=== PATIENT | female | born 1950 | race Caucasian/White ===

== ENCOUNTER 2016-10-21 02:58 | Emergency (ER) | payer OTHER, MEDICARE ==
[~2016-10-21] VITALS: Ht 147.3 cm; Wt 72.6 kg
[~2016-10-21 02:58] MED LIST: A/B OTIC15 ML; AMBIEN5 MG PO; ASPIR 8181 MG PO; BACLOFEN10 MG PO; CEL20 PO; COZ50 PO; DIT5 PO; ESCITALOPRAM20 M1 PO; FENOFIBRATE MI134 MG PO; FLUTICASON0.05 MG/Ac INH; GLATOPA INJ; GLU850 PO; HYDROCHLOROTHIA25 MG PO; HYDROCODONE/ACE1 TA2 PO; LAC PO; LEVAQUIN750 MG PO; PATANOL5 ML PO; PREDNISONE10 MG PO; PREDNISONE20 MG PO; TRAMADOL50 M1 PO; VITAMIN D5000 I3 PO; ZOC10 PO; ZOLPIDEM TARTRAT5 MG PO; [UNRECOGNIZED DRUG - CODE] TOP
[2016-10-21 16:51] LABS: BASOPHIL % 0.3 % (0-2); PLATELET COUNT 291 x10^3mcL (130-400); RED CELL DISTRIBUTION WIDTH 12.9 % (11.5-14.5)
[2016-10-21 16:58] LABS: CALCIUM 9.5 mg/dL (8.5-10.1); CARBON DIOXIDE 28.3 mmol/L (21-32); CHLORIDE SERUM 105 mmol/L (98-107); CREATININE SERUM 0.8 mg/dL (0.6-1.0); GFR1 > 60 mL/min; GLUCOSE SERUM 96 mg/dL (74-106); POTASSIUM SERUM 3.8 mmol/L (3.5-5.1); SODIUM SERUM 144 mmol/L (136-145)
[2016-10-21 17:03] LABS: ALBUMIN 4.3 g/dL (3.4-5.0); ALKALINE PHOSPHATASE 50 U/L (46-116); ALT/SGPT 23 U/L (14-59); AST/SGOT 16 U/L (15-37); BILIRUBIN TOTAL 0.4 mg/dL (0.20-1.00); CHOLESTEROL 146 mg/dL (<200); HDL CHOLESTEROL 52 mg/dL (40-60); TOTAL PROTEIN, SERUM 7.4 g/dL (6.4-8.2)
[2016-10-21 19:30] VITALS: BP 147/75
== END 2016-10-21 19:30 | disposition home or self-care (01) ==
LOC: ED 02:58
PROVIDERS: Emergency Medicine
DX: S00.83XA Contusion of other part of head, initial encounter (principal); S00.81XA Abrasion of other part of head, initial encounter; I10 Essential (primary) hypertension; E11.9 Type 2 diabetes mellitus without complications; Z88.0 Allergy status to penicillin; W17.89XA Other fall from one level to another, initial encounter; Y93.89 Activity, other specified; Y99.8 Other external cause status; Y92.89 Other specified places as the place of occurrence of the external cause
CPT/HCPCS: 83880

== ENCOUNTER 2017-02-08 11:31 | Emergency (ER) | payer OTHER, MEDICARE ==
[~2017-02-08] VITALS: Ht 149.9 cm; Wt 72.6 kg
[2017-02-08 15:00] VITALS: BP 120/71
== END 2017-02-08 15:00 | disposition home or self-care (01) ==
LOC: ED 11:31
DX: S93.115A Dislocation of interphalangeal joint of left lesser toe(s), initial encounter (principal); I10 Essential (primary) hypertension; E11.9 Type 2 diabetes mellitus without complications; Z88.0 Allergy status to penicillin; W18.39XA Other fall on same level, initial encounter; Y93.89 Activity, other specified; Y99.8 Other external cause status; Y92.89 Other specified places as the place of occurrence of the external cause
CPT/HCPCS: J2001; Q0092

== ENCOUNTER 2017-05-02 08:38 | Inpatient (IN) | payer OTHER, MEDICARE ==
[~2017-05-02] VITALS: Ht 147.3 cm; Wt 76.7 kg
--- NOTE | 2017-05-02 09:01 | NUR ---
PT BIBA FROM HOME WITH C/O GENERALIZED WEAKNESS AND FALL, PER MEDICS THEY WERE CALLED OUT INITIALLY FOR AN "ASSIST" THEY REPORT PT WAS UNABLE TO GET BACK TO HER ROOM, MEDICS DENY FALL BUT PT REPORTS FALLING, STATES "I FALL ALOT", HX OF MS, PT IS AWAKE AND ALERT, WHEN ASKING PT QUESTIONS, PT STATES TO DR. PRICE "YOU ARE ASKING A LOT OF QUESTIONS", PT ALSO STATES "I'M GOING TO TAKE A VOTE WITH EVERYONE HERE WHO THINKS I SHOULD ANSWER THESE QUESTIONS", EDUCATED PT ABOUT WHY DR. PRICE ASKING PT HER HX, PT STATES "YOU KNOW ME", "DID YOU MISS ME?" TO DR. 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
--- NOTE | 2017-05-02 09:12 | NUR ---
XRAY AT BEDSIDE
--- NOTE | 2017-05-02 09:18 | NUR ---
PT TO CT VIA [facility]
[2017-05-02 09:26] LABS: BASOPHIL % 0.3 % (0-2); PLATELET COUNT 303 x10^3mcL (130-400); RED CELL DISTRIBUTION WIDTH 13.9 % (11.5-14.5)
[2017-05-02 09:33] LABS: microscopic required? YES; urine erythrocyte NEGATIVE (NEGATIVE)
[2017-05-02 09:47] LABS: CALCIUM 9.4 mg/dL (8.5-10.1); CARBON DIOXIDE 31.7 mmol/L (21-32); CHLORIDE SERUM 102 mmol/L (98-107); CREATININE SERUM 0.8 mg/dL (0.6-1.0); GFR1 > 60 mL/min; GLUCOSE SERUM 95 mg/dL (74-106); POTASSIUM SERUM 3.3 mmol/L (3.5-5.1); SODIUM SERUM 141 mmol/L (136-145)
[2017-05-02 10:00] LABS: ALBUMIN 4.5 g/dL (3.4-5.0); ALKALINE PHOSPHATASE 42 U/L (46-116); ALT/SGPT 22 U/L (14-59); AMYLASE 49 U/L (25-115); AST/SGOT 17 U/L (15-37); BILIRUBIN TOTAL 0.42 mg/dL (0.20-1.00); CHOLESTEROL 144 mg/dL (<200); HDL CHOLESTEROL 49 mg/dL (40-60); LIPASE 117 IU/L (73-393); T4(THYROXINE) 6.7 ug/dL (4.7-13.3); TOTAL PROTEIN, SERUM 7.7 g/dL (6.4-8.2)
[2017-05-02 10:00] LABS: AMPHETAMINE QUAL UR NONE DETECTED (NEG <=1000)
--- NOTE | 2017-05-02 10:02 | NUR ---
PT IS IN NO ACUTE DISTRESS, REPOSITIONED IN BED
--- NOTE | 2017-05-02 10:46 | NUR ---
ASSISTED PT ONTO BEDSIDE COMMODE TO VOID; C/O HEADACHE, DR. PRICE NOTIFIED, VERBAL ORDER FOR TYLENOL 1GM PO
--- NOTE | 2017-05-02 11:29 | NUR ---
EDUCATED PT ABOUT PLAN OF CARE, PT CONFUSED AT TIMES AND NEEDS TO BE CONSTANTLY REMINDED OF WHY LAB DRAW FOR CULTURES IS BEING DONE AND IV PLACEMENT FOR ABX TO TREAT HER UTI
--- NOTE | 2017-05-02 11:30 | NUR ---
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
--- NOTE | 2017-05-02 12:03 | NUR ---
REPORT CALLED TO EMI HUDSON TO ASSUME CARE, PT TO BE TRANSFERRED TO ROOM 234A
--- NOTE | 2017-05-02 12:15 | NUR ---
RESUMED CARE FOR Pt. FROM ED. Pt. AAOX4 WITH FORGETFULNESS DENIES MCDANIEL/DIZZINESS AT THIS TIME. RESPIRATIONS EVEN AND UNLABORED RA. DENIES PAIN/DISCOMFORT AT THIS TIME. PLACED ON TELE 15 DENIES CHEST PAIN/PRESSURE SINU TACHYCARDIA ON TELE. IVF AND IV LEVAQUIN RESUMED TO IV LEFT AC PATENT AND INTACT. ABD ROUND/SOFT/NONTENDER ACTIVE BS X 4 QUAD. Pt. C/O URINARY FREQUENCY. BILATERAL FEET WITH DRY SKIN. BLACK DISCOLORATION NOTED AT RIGHT 2ND AND 3RD TOES AND OPEN WOUND TO RIGHT PLANTAR 1 X 0.5 CM. NO DRAINAGE/REDNESS/SWELLING NOTED INCOME TAX PREPARER PICTURES TAKEN. Pt INSTRUCTED WITH BED CONTROL AND CALL LIGHT USE AND KEPT IN REACH.
[2017-05-02 13:10] VITALS: BP 141/70
[2017-05-02 14:15] VITALS: BP 120/55
--- NOTE | 2017-05-02 14:30 | NUR ---
Pt. C/O TOOTH PAIN 7/10 SCALE, NORCO ADMINISTERED WILL CONTINUE TO MONITOR.
--- NOTE | 2017-05-02 16:30 | NUR ---
Pt. STILL COMPLAINING OF PAIN IN TEETH POST NORCO DR. HERNANDEZ MADE AWARE.
[2017-05-02 17:02] VITALS: BP 109/53
--- NOTE | 2017-05-02 17:39 | NUR ---
Pt. C/O PAIN IN TEETH ORAJEL ADMINISTERED PER EMAR.
--- NOTE | 2017-05-02 18:00 | NUR ---
Pt. AAOX4, RESPIRATIONS EVEN AND UNLABORED RA, DENIES PAIN/DISCOMFORT AT THIS TIME. REPORTED RELIEF POST ORAJEL ADMINISTRATION CURRENTLY EATING DINNER TRAY TOLERATED DIET WELL. NO DISTRESS NOTED. TELE IN PLACE DENIES CHEST PAIN/PRESSURE. IVF RUNNING TO IV LEFT AC PATENT AND INTACT. Pt. STILL C/O URINARY FREQUENCY AND ASSIST WITH BEDPAN NEEDED. BED LOW/LOCKED. CALL LIGHT IN REACH.
--- NOTE | 2017-05-02 19:40 | NUR ---
REC'D REPORT FROM DAY NURSE RN EMI. AAOX4 BUT FORGETFUL AT TIMES. [place]. ABLE TO MAKE NEEDS KNOWN. DENIES PAIN. NO DISTRESS NOTED. TELE# 15. LUNG SOUNDS ARE CTA. ON RA. NO SOB. BREATHING EVEN AND UNLABORED. ABD IS ROUND AND ACTIVE. NO EDEMA NOTED. IV ACCESS PATENT AND INTACT INFUSING WELL. WILL PROCEED TO THE PLAN OF CARE.
[2017-05-02 21:48] VITALS: BP 113/51
--- NOTE | 2017-05-03 01:32 | NUR ---
ROUNDS MADE, PT IS AWAKE AND WATCHING TV. NO DISTRESS NOTED. WILL CONT TO MONITOR.
--- NOTE | 2017-05-03 03:08 | NUR ---
ROUNDS MADE, PT IS ASLEEP AND RESTING WELL. NO DISTRESS NOTED. WILL CONT TO MONITOR.
[2017-05-03 05:41] VITALS: BP 130/55
--- NOTE | 2017-05-03 06:44 | NUR ---
PT HAD INTVERALS OF SLEEP THROUGHOUT THE SHIFT. NO DISTRESS OR SIGNIFICANT CHANGES NOTED. ALL NEEDS MET AND ATTENDED TO. NO SOB. BREATHING EVEN AND UNLABORED. IV ACCESS PATENT AND INTACT INFUSING WELL. WILL ENDORSE ALL CARE TO ONCOMING NURSE.
--- NOTE | 2017-05-03 07:23 | NUR ---
PATIENT RECEIVED AND SEEN. PATIENT IS AAO TO PERSON PLACE AND TIME BUT FORGETFUL AT TIMES. TELE MONITOR [address] RESPIRATIONS EVEN AND UNLABORED ON ROOM AIR, LUNGS CTA ON ROOM AIR. PATIENT IS INCONTINENT OF URINE AT TIMES. USES BEDPAN. PT HAS GENERALIZED WEAKNESS. AMBULATES WITH ASSIST. PATIENT HAS BLACK DISCOLORED AREAS ON THE TOP OF THE RIGHT 2ND AND 3RD TOES, AND A RIGHT PLANTAR WOUND 1CM X 0.5CM. PATIENT DENIES PAIN AT THIS TIME. NS INFUSING AT 100CC/HR IN RFA. PATIENT APPEARS CALM AT THIS TIME, BUT GETS ANXIOUS AT TIMES. CALL LIGHT WITHIN REACH. ALL SAFETY MEASURES IN PLACE. WILL CONTINUE TO MONITOR.
[2017-05-03 07:24] LABS: BASOPHIL % 0.5 % (0-2); PLATELET COUNT 259 x10^3mcL (130-400)
[2017-05-03 07:33] LABS: CALCIUM 8.7 mg/dL (8.5-10.1); CARBON DIOXIDE 24.1 mmol/L (21-32); CHLORIDE SERUM 110 mmol/L (98-107); CREATININE SERUM 0.9 mg/dL (0.6-1.0); GFR1 > 60 mL/min; GLUCOSE SERUM 98 mg/dL (74-106); MAGNESIUM 1.9 mg/dL (1.8-2.4); PHOSPHOROUS 2.7 mg/dL (2.5-4.9); POTASSIUM SERUM 4.1 mmol/L (3.5-5.1); SODIUM SERUM 143 mmol/L (136-145)
[2017-05-03 08:10] VITALS: BP 147/72
[2017-05-03 09:34] VITALS: Ht 147.3 cm; Wt 76.7 kg
[2017-05-03 12:56] VITALS: BP 148/73
[2017-05-03 17:39] VITALS: BP 136/62
--- NOTE | 2017-05-03 19:10 | NUR ---
PATIENT RECEIVED AWAKE, ALERT, AND ORIENTED X 3. NO DISTRESS NOTED. PATIENT DENIES ORAL PAIN AT THIS TIME. IV SITE TO RIGHT FOREARM, PATENT AND INTACT. IV FLUID INFUSING PER DOCTOR'S ORDER. BED IN LOWEST POSITION. CALL LIGHT WITHIN REACH. WILL CONTINUE TO MONITOR.
--- NOTE | 2017-05-03 19:15 | NUR ---
REPORT GIVEN TO NIGHT NURSE. AT THIS TIME THE PATIENT IS RESTING IN BED. TELE MONITOR IN PLACE. IV INFUSING PER ORDER. SCDS IN PLACE. PATIENT APPEARS CALM. NO SIGNS OF ACUTE DISTRESS AT THIS TIME. RESPIRATIONS EVEN AND UNLABORED ON ROOM AIR. CALL LIGHT WITHIN REACH. ALL SAFETY MEASURES IN PLACE.
[2017-05-03 20:32] VITALS: BP 117/58
--- NOTE | 2017-05-04 05:01 | NUR ---
PATIENT RESTED IN INTERVALS THROUGHOUT THE NIGHT. NO DISTRESS NOTED. PROVIDED ORAJEL FOR PAIN X 1 PER DOCTOR'S PRN ORDER. NO FURTHER C/O PAIN THROUGHOUT THE NIGHT. ALL NEEDS MET. SAFETY AND COMFORT MEASURES MAINTAINED. BED IN LOWEST POSITION. CALL LIGHT WITHIN REACH. WILL CONTINUE TO MONITOR AND ENDORSE TO NEXT SHIFT NURSE.
[2017-05-04 05:43] VITALS: BP 144/72
[2017-05-04 06:01] LABS: BASOPHIL % 0.5 % (0-2); PLATELET COUNT 253 x10^3mcL (130-400); RED CELL DISTRIBUTION WIDTH 13.9 % (11.5-14.5)
[2017-05-04 06:37] LABS: CALCIUM 8.8 mg/dL (8.5-10.1); CARBON DIOXIDE 27.7 mmol/L (21-32); CHLORIDE SERUM 111 mmol/L (98-107); CREATININE SERUM 0.8 mg/dL (0.6-1.0); GFR1 > 60 mL/min; GLUCOSE SERUM 82 mg/dL (74-106); POTASSIUM SERUM 3.9 mmol/L (3.5-5.1); SODIUM SERUM 146 mmol/L (136-145)
[2017-05-04 08:54] VITALS: BP 122/57
--- NOTE | 2017-05-04 09:33 | NUR ---
AAO TIMES 3. TELE # 15 SR. LUNGS CTA. NO SOB. O2 SAT ON RA 97%. BS'S ACTIVE TIMES 4. FORGETFUL, WILL ASK THE SAME QUESTION A FEW TIMES. MAGUIRE WITH GENERALIZED WEAKNESS. IV SITE CDI. PERIPHERAL PULSES PALPABLE. NO EDEMA. SCD BLE. NO C/O PAIN. ROUNDS WERE PERFORMED AT [address] MCCANN AND THE MEDICINE TEAM. THE PLAN TODAY IS TO SEND HER HOME WITH PT, IF IT CAN BE ARRANGED.
--- NOTE | 2017-05-04 10:09 | NUR ---
SCD BLE ON.
--- NOTE | 2017-05-04 11:13 | NUR ---
DR HERNANDEZ AWARE THAT THE COZAAR AND HCTZ WAS HELD THIS AM FOR A BP OF 122/57 AND HR OF 99.
[2017-05-04] MEDS ORDERED: LEVAQUIN750 MG PO (13:11)
[2017-05-04] MEDS ORDERED: LAC PO (13:11)
[2017-05-04 13:47] VITALS: BP 151/84
[2017-05-04 13:53] VITALS: BP 151/84
--- NOTE | 2017-05-04 16:37 | NUR ---
PHYSICAL THERAPY DAILY NOTES CO-SIGN All documentation done by the Floral Merchandiser for 05/04/17 has been reviewed. I agree with the documentation. Reviewed/Co-Signed by: Gerald Villalobos PT Documentation Done by:VERNELL MARTINEZ OVEREDGE SEWER PROGRESSING W/ GAIT ENDURANCE; WILL BENEFIT W/ P.T. AFTER ACUTE STAY; Pt STATES SHE CAN GET IN HER HOME ON THE SIDE WITHOUT USE OF STAIRS.
[2017-05-04 17:00] VITALS: BP 144/78
--- NOTE | 2017-05-04 17:40 | NUR ---
DC'D SL ANGIO INTACT. GAVE PT DISCHARGE INSTRUCTIONS. PT'S SON WILL MEET HIS MOM AND THE MEDICAL W/C VAN AT THE HOUSE PER SHAN SANCHEZ. PT VERBALIZED "I UNDERSTAND" TO ALL INSTRCTIONS.
--- NOTE | 2017-05-04 18:17 | NUR ---
PT IS DRESSED AND READY TO GO HOME. SL DC'D. NO C/O PAIN. WAITING FOR THE MEDICAL VAN. TELE DC'D.
== END 2017-05-04 18:43 | disposition home health service (06) | DRG 720 ==
LOC: ED 08:38 → DU 11:34
PROVIDERS: Emergency Medicine; Family Medicine Sports Medicine; ADMIT Student in an Organized Health Care Education/Training Program
DX: A41.9 Sepsis, unspecified organism (principal); G93.41 Metabolic encephalopathy; D68.69 Other thrombophilia; E11.51 Type 2 diabetes mellitus with diabetic peripheral angiopathy without gangrene; G35 Multiple sclerosis; N39.0 Urinary tract infection, site not specified; R65.20 Severe sepsis without septic shock; E87.6 Hypokalemia; D64.9 Anemia, unspecified; I10 Essential (primary) hypertension; E66.9 Obesity, unspecified; Z68.35 Body mass index [BMI] 35.0-35.9, adult; Z66 Do not resuscitate; Z79.84 Long term (current) use of oral hypoglycemic drugs; Z88.0 Allergy status to penicillin; W19.XXXA Unspecified fall, initial encounter; Y93.89 Activity, other specified; Y92.89 Other specified places as the place of occurrence of the external cause; Y99.8 Other external cause status
CPT/HCPCS: 82962; 83880; 97110-GP; 97116-GP; 97530-GP; G0480; J1956; J7030; J7512; Q0092

== ENCOUNTER 2017-08-26 17:16 | Inpatient (IN) | payer OTHER, MEDICARE ==
[~2017-08-26] VITALS: Ht 147.3 cm; Wt 70.4 kg
[~2017-08-26 17:16] MED LIST changes: +TRAMADOL HCL50 MG PO; -TRAMADOL50 M1 PO; -VITAMIN D5000 I3 PO; +VITAMIN-D1000 IU PO
[2017-08-26 18:34] LABS: CALCIUM 9.7 mg/dL (8.5-10.1); CARBON DIOXIDE 28.8 mmol/L (21-32); CHLORIDE SERUM 103 mmol/L (98-107); CREATININE SERUM 0.8 mg/dL (0.6-1.0); GFR1 > 60 mL/min; GLUCOSE SERUM 114 mg/dL (74-106); POTASSIUM SERUM 4.1 mmol/L (3.5-5.1); SODIUM SERUM 142 mmol/L (136-145)
[2017-08-26 18:36] LABS: BASOPHIL % 0.8 % (0-2); PLATELET COUNT 270 x10^3mcL (130-400); RED CELL DISTRIBUTION WIDTH 13.3 % (11.5-14.5)
[2017-08-26 18:39] LABS: ALBUMIN 4.2 g/dL (3.4-5.0); ALKALINE PHOSPHATASE 48 U/L (46-116); ALT/SGPT 20 U/L (14-59); AST/SGOT 16 U/L (15-37); BILIRUBIN TOTAL 0.3 mg/dL (0.20-1.00); TOTAL PROTEIN, SERUM 7.4 g/dL (6.4-8.2)
[2017-08-26 20:50] VITALS: BP 166/68
[2017-08-26 20:55] VITALS: Ht 147.3 cm; Wt 70.4 kg
[2017-08-26 21:25] LABS: MAGNESIUM 1.8 mg/dL (1.8-2.4); PHOSPHOROUS 3.1 mg/dL (2.5-4.9)
[2017-08-26 21:32] LABS: T3 TOTAL 0.82 ng/mL
[2017-08-26 21:41] LABS: FREE T4 1.16 ng/dL (0.76-1.46); FREE THYROXINE INDEX 3.2 ug/dL (1.4-4.5); T4(THYROXINE) 8.5 ug/dL (4.7-13.3)
[2017-08-27] MEDS ORDERED: GLU500 PO (01:02)
[2017-08-27 05:44] VITALS: BP 143/61
[2017-08-27 06:43] LABS: BASOPHIL % 0.3 % (0-2); PLATELET COUNT 237 x10^3mcL (130-400); RED CELL DISTRIBUTION WIDTH 13.4 % (11.5-14.5)
[2017-08-27 06:52] LABS: CALCIUM 8.8 mg/dL (8.5-10.1); CARBON DIOXIDE 25.1 mmol/L (21-32); CHLORIDE SERUM 108 mmol/L (98-107); CREATININE SERUM 0.7 mg/dL (0.6-1.0); GFR1 > 60 mL/min; GLUCOSE SERUM 114 mg/dL (74-106); MAGNESIUM 1.8 mg/dL (1.8-2.4); POTASSIUM SERUM 3.8 mmol/L (3.5-5.1); SODIUM SERUM 143 mmol/L (136-145)
[2017-08-27 08:31] VITALS: BP 169/93
[2017-08-27 12:50] VITALS: BP 177/89
[2017-08-27 17:36] VITALS: BP 137/56
[2017-08-27 21:57] VITALS: BP 121/49
[2017-08-27 23:53] LABS: UA SPECIFIC GRAVITY 1.015 (1.005-1.035); microscopic required? YES; urine erythrocyte TRACE (NEGATIVE)
[2017-08-28 05:41] VITALS: BP 134/49
[2017-08-28 07:08] LABS: CALCIUM 9.2 mg/dL (8.5-10.1); CARBON DIOXIDE 25.1 mmol/L (21-32); CHLORIDE SERUM 106 mmol/L (98-107); CREATININE SERUM 0.7 mg/dL (0.6-1.0); GFR1 > 60 mL/min; GLUCOSE SERUM 128 mg/dL (74-106); MAGNESIUM 1.9 mg/dL (1.8-2.4); POTASSIUM SERUM 3.9 mmol/L (3.5-5.1); SODIUM SERUM 142 mmol/L (136-145)
[2017-08-28 07:30] LABS: BASOPHIL % 0.2 % (0-2); PLATELET COUNT 239 x10^3mcL (130-400); RED CELL DISTRIBUTION WIDTH 13.2 % (11.5-14.5)
[2017-08-28 09:44] VITALS: BP 139/59
[2017-08-28] MEDS ORDERED: MEDROL DOSEPAK4 MG PO ×2 (10:34→10:57)
[2017-08-28] MEDS ORDERED: BD LACTINEX1.4 MG PO (10:37)
[2017-08-28 13:34] VITALS: BP 151/71
[2017-08-28 16:08] VITALS: BP 151/71
[2017-08-28 17:44] VITALS: BP 183/93
== END 2017-08-28 18:30 | DRG 115 ==
LOC: ED 17:16 → DU 19:35
PROVIDERS: Emergency Medicine; Family Medicine
DX: S09.90XA Unspecified injury of head, initial encounter (principal); N17.0 Acute kidney failure with tubular necrosis; Z88.0 Allergy status to penicillin; G35 Multiple sclerosis; I10 Essential (primary) hypertension; W18.39XA Other fall on same level, initial encounter; Y93.89 Activity, other specified; Y92.89 Other specified places as the place of occurrence of the external cause; Y99.8 Other external cause status; E11.9 Type 2 diabetes mellitus without complications; E66.9 Obesity, unspecified; Z68.35 Body mass index [BMI] 35.0-35.9, adult; F32.9 Major depressive disorder, single episode, unspecified; N39.0 Urinary tract infection, site not specified
CPT/HCPCS: 82962; 83880; 84439; 97110-GP; 97530-GP; J0360; J1644; J1815; J1885; J1956; J2270; J2930; J3490; J7030

== ENCOUNTER 2018-06-02 16:29 | Inpatient (IN) | payer OTHER, MEDICARE ==
[~2018-06-02] VITALS: Ht 147.3 cm; Wt 73.2 kg
[~2018-06-02 16:29] MED LIST changes: +BD LACTINEX1.4 MG PO; +GLU500 PO; +MEDROL DOSEPAK4 MG PO
[2018-06-02 16:36] VITALS: Ht 147.3 cm; Wt 73.2 kg
[2018-06-02 17:01] LABS: BASOPHIL % 0.5 % (0-2); PLATELET COUNT 286 x10^3mcL (130-400); RED CELL DISTRIBUTION WIDTH 13.3 % (11.5-14.5)
[2018-06-02 17:10] LABS: CALCIUM 9.3 mg/dL (8.5-10.1); CARBON DIOXIDE 28.3 mmol/L (21-32); CHLORIDE SERUM 105 mmol/L (98-107); CREATININE SERUM 0.8 mg/dL (0.6-1.0); GFR1 > 60 mL/min; GLUCOSE SERUM 108 mg/dL (74-106); POTASSIUM SERUM 3.8 mmol/L (3.5-5.1); SODIUM SERUM 139 mmol/L (136-145)
[2018-06-02 17:14] LABS: ALKALINE PHOSPHATASE 55 U/L (46-116); ALT/SGPT 17 U/L (14-59); AST/SGOT 29 U/L (15-37); BILIRUBIN TOTAL 0.24 mg/dL (0.20-1.00); CHOLESTEROL 124 mg/dL (<200); TOTAL PROTEIN, SERUM 7.4 g/dL (6.4-8.2)
[2018-06-02 18:49] LABS: microscopic required? YES; urine erythrocyte TRACE (NEGATIVE)
[2018-06-02 20:14] LABS: FREE T4 1.02 ng/dL (0.76-1.46); FREE THYROXINE INDEX 2.6 ug/dL (1.4-4.5); T4(THYROXINE) 7.1 ug/dL (4.7-13.3)
[2018-06-02 20:40] LABS: MAGNESIUM 2.2 mg/dL (1.8-2.4); PHOSPHOROUS 3.5 mg/dL (2.5-4.9)
[2018-06-02 20:41] VITALS: BP 113/62
[2018-06-02 20:49] LABS: T3 TOTAL 0.97 ng/mL
[2018-06-02 21:47] LABS: AMPHETAMINE QUAL UR NONE DETECTED (See below)
[2018-06-03 05:48] VITALS: BP 113/48
[2018-06-03 06:50] LABS: CALCIUM 8.7 mg/dL (8.5-10.1); CARBON DIOXIDE 25.8 mmol/L (21-32); CHLORIDE SERUM 110 mmol/L (98-107); CREATININE SERUM 0.7 mg/dL (0.6-1.0); GFR1 > 60 mL/min; GLUCOSE SERUM 82 mg/dL (74-106); PHOSPHOROUS 2.9 mg/dL (2.5-4.9); POTASSIUM SERUM 3.8 mmol/L (3.5-5.1); SODIUM SERUM 144 mmol/L (136-145)
[2018-06-03 07:54] LABS: BASOPHIL % 0.6 % (0-2); PLATELET COUNT 228 x10^3mcL (130-400); RED CELL DISTRIBUTION WIDTH 13.3 % (11.5-14.5)
[2018-06-03 08:35] VITALS: BP 94/41
[2018-06-03 10:15] VITALS: BP 113/54
[2018-06-03 12:33] VITALS: BP 117/47
[2018-06-03 16:37] VITALS: BP 103/46
[2018-06-03 20:54] VITALS: BP 126/60
[2018-06-04 05:13] VITALS: BP 111/55
[2018-06-04 08:00] VITALS: BP 115/57
[2018-06-04 10:40] LABS: BASOPHIL % 0.4 % (0-2); PLATELET COUNT 215 x10^3mcL (130-400); RED CELL DISTRIBUTION WIDTH 13.6 % (11.5-14.5)
[2018-06-04 10:52] LABS: CALCIUM 8.5 mg/dL (8.5-10.1); CARBON DIOXIDE 26.6 mmol/L (21-32); CHLORIDE SERUM 109 mmol/L (98-107); CREATININE SERUM 0.9 mg/dL (0.6-1.0); GFR1 > 60 mL/min; GLUCOSE SERUM 127 mg/dL (74-106); MAGNESIUM 1.8 mg/dL (1.8-2.4); PHOSPHOROUS 3.2 mg/dL (2.5-4.9); POTASSIUM SERUM 3.9 mmol/L (3.5-5.1); SODIUM SERUM 142 mmol/L (136-145)
[2018-06-04 12:30] VITALS: BP 109/49
[2018-06-04 14:55] VITALS: BP 109/49
[2018-06-04 16:45] VITALS: BP 117/56
== END 2018-06-04 19:30 | DRG 720 ==
LOC: ED 16:29 → DU 19:42 → MU 19:42 → DU 06-03
PROVIDERS: Family Medicine; Specialist
DX: A41.9 Sepsis, unspecified organism (principal); N17.0 Acute kidney failure with tubular necrosis; S02.2XXA Fracture of nasal bones, initial encounter for closed fracture; R65.20 Severe sepsis without septic shock; N39.0 Urinary tract infection, site not specified; G35 Multiple sclerosis; I10 Essential (primary) hypertension; E11.9 Type 2 diabetes mellitus without complications; G90.8 Other disorders of autonomic nervous system; G31.9 Degenerative disease of nervous system, unspecified; F32.9 Major depressive disorder, single episode, unspecified; W18.39XA Other fall on same level, initial encounter; Y92.018 Other place in single-family (private) house as the place of occurrence of the external cause; Z79.84 Long term (current) use of oral hypoglycemic drugs; Y93.89 Activity, other specified; Y99.8 Other external cause status; Z88.0 Allergy status to penicillin; Z79.899 Other long term (current) drug therapy; Z84.89 Family history of other specified conditions; Z68.32 Body mass index [BMI] 32.0-32.9, adult
CPT/HCPCS: 82962; 83880; 84439; 97110-GP; 97116-GP; 97530-GP; G0480; J1885; J1956; J2405; J3010; J7030; Q0092

== ENCOUNTER 2018-12-06 22:29 | Inpatient (IN) | payer OTHER, MEDICARE ==
[~2018-12-06] VITALS: Ht 147.3 cm; Wt 71.2 kg
[2018-12-07 00:12] VITALS: Ht 147.3 cm; Wt 71.2 kg
[2018-12-07 01:09] LABS: BASOPHIL % 0.5 % (0-2); PLATELET COUNT 247 x10^3mcL (130-400); RED CELL DISTRIBUTION WIDTH 13.7 % (11.5-14.5)
[2018-12-07 01:18] LABS: CALCIUM 9.5 mg/dL (8.5-10.1); CARBON DIOXIDE 24.7 mmol/L (21-32); CHLORIDE SERUM 109 mmol/L (98-107); CREATININE SERUM 0.8 mg/dL (0.6-1.0); GFR1 > 60 mL/min; GLUCOSE SERUM 112 mg/dL (74-106); POTASSIUM SERUM 3.7 mmol/L (3.5-5.1); SODIUM SERUM 144 mmol/L (136-145)
[2018-12-07 01:22] LABS: ALBUMIN 3.6 g/dL (3.4-5.0); ALKALINE PHOSPHATASE 49 U/L (46-116); ALT/SGPT 16 U/L (14-59); AST/SGOT 5 U/L (15-37); BILIRUBIN TOTAL 0.25 mg/dL (0.20-1.00); TOTAL PROTEIN, SERUM 6.8 g/dL (6.4-8.2)
[2018-12-07 10:12] VITALS: BP 131/47
[2018-12-07 13:43] LABS: microscopic required? YES; urine erythrocyte NEGATIVE (NEGATIVE)
[2018-12-07 18:33] VITALS: BP 132/84
[2018-12-07 21:38] VITALS: BP 115/68
[2018-12-08 05:26] VITALS: BP 114/53
[2018-12-08 06:46] LABS: CALCIUM 8.9 mg/dL (8.5-10.1); CARBON DIOXIDE 29.6 mmol/L (21-32); CHLORIDE SERUM 110 mmol/L (98-107); CREATININE SERUM 0.8 mg/dL (0.6-1.0); GFR1 > 60 mL/min; GLUCOSE SERUM 78 mg/dL (74-106); POTASSIUM SERUM 4.4 mmol/L (3.5-5.1); SODIUM SERUM 146 mmol/L (136-145)
[2018-12-08 07:12] LABS: BASOPHIL % 0.6 % (0-2); PLATELET COUNT 183 x10^3mcL (130-400)
[2018-12-08 09:02] VITALS: BP 138/60
[2018-12-08 11:12] VITALS: BP 138/60
== END 2018-12-08 14:28 | disposition home or self-care (01) | DRG 463 ==
LOC: ED 22:29 → MU 12-07 06:29
PROVIDERS: Emergency Medicine; ADMIT Internal Medicine
DX: N39.0 Urinary tract infection, site not specified (principal); G35 Multiple sclerosis; E11.65 Type 2 diabetes mellitus with hyperglycemia; E86.0 Dehydration; E78.5 Hyperlipidemia, unspecified; R63.0 Anorexia; I10 Essential (primary) hypertension; Z88.0 Allergy status to penicillin
CPT/HCPCS: 82962; 97116-GP; J1956; J7030; J7512

== ENCOUNTER 2019-07-12 21:14 | Emergency (ER) | payer MEDICARE, OTHER ==
[2019-07-12 23:41] LABS: CARBON DIOXIDE 26.3 mmol/L (21-32); CHLORIDE SERUM 106 mmol/L (98-107); GLUCOSE SERUM 109 mg/dL (74-106); SODIUM SERUM 140 mmol/L (136-145)
[2019-07-12 23:42] LABS: CALCIUM 9.2 mg/dL (8.5-10.1); CREATININE SERUM 0.8 mg/dL (0.6-1.0); GFR1 > 60 mL/min; MAGNESIUM 2.1 mg/dL (1.8-2.4)
[2019-07-12 23:53] LABS: BASOPHIL % 0.3 % (0-2); PLATELET COUNT 269 x10^3mcL (130-400); RED CELL DISTRIBUTION WIDTH 13.3 % (11.5-14.5)
[2019-07-13 01:07] LABS: microscopic required? YES; urine erythrocyte NEGATIVE (NEGATIVE)
[2019-07-13 07:24] VITALS: BP 109/70
== END 2019-07-13 07:24 | disposition home or self-care (01) ==
LOC: ED 21:14
PROVIDERS: Emergency Medicine
DX: S00.81XA Abrasion of other part of head, initial encounter (principal); N39.0 Urinary tract infection, site not specified; I10 Essential (primary) hypertension; E11.9 Type 2 diabetes mellitus without complications; Z88.0 Allergy status to penicillin; W18.30XA Fall on same level, unspecified, initial encounter; Y93.89 Activity, other specified; Y92.89 Other specified places as the place of occurrence of the external cause; Y99.8 Other external cause status
CPT/HCPCS: 36415; Q0092

== ENCOUNTER 2020-03-03 19:50 | Emergency (ER) | payer MEDICARE, OTHER ==
[~2020-03-03] VITALS: Ht 152.4 cm; Wt 86.2 kg
[2020-03-03 20:19] VITALS: Ht 152.4 cm; Wt 86.2 kg
[2020-03-04 08:12] VITALS: BP 117/73
== END 2020-03-04 09:35 | disposition home or self-care (01) ==
LOC: ED 19:50
DX: M79.10 Myalgia, unspecified site (principal); E66.01 Morbid (severe) obesity due to excess calories; G35 Multiple sclerosis; I10 Essential (primary) hypertension; E11.9 Type 2 diabetes mellitus without complications; Z68.45 Body mass index [BMI] 70 or greater, adult; Z88.0 Allergy status to penicillin
CPT/HCPCS: J1885; Q0092

== ENCOUNTER 2020-03-20 23:27 | Emergency (ER) | payer MEDICARE, OTHER ==
[~2020-03-20] VITALS: Ht 149.9 cm; Wt 90.7 kg
[2020-03-21 00:10] VITALS: Ht 149.9 cm; Wt 90.7 kg
[2020-03-21 01:26] VITALS: BP 123/76
== END 2020-03-21 01:26 | disposition home or self-care (01) ==
LOC: ED 23:27
DX: G35 Multiple sclerosis (principal); I10 Essential (primary) hypertension; E11.9 Type 2 diabetes mellitus without complications; Z88.0 Allergy status to penicillin
CPT/HCPCS: J1885

== ENCOUNTER 2020-03-22 13:37 | Observation (INO) | payer OTHER, MEDICARE ==
[~2020-03-22] VITALS: Ht 149.9 cm; Wt 85.7 kg
[2020-03-22 13:43] VITALS: Ht 149.9 cm; Wt 85.7 kg
[2020-03-22 15:39] LABS: PLATELET COUNT 271 x10^3mcL (130-400); RED CELL DISTRIBUTION WIDTH 13.4 % (11.5-14.5)
[2020-03-22 15:46] LABS: BASOPHIL % 0 % (0-2)
[2020-03-22 16:57] LABS: CALCIUM 9.3 mg/dL (8.5-10.1); CARBON DIOXIDE 24.4 mmol/L (21-32); CHLORIDE SERUM 106 mmol/L (98-107); CREATININE SERUM 0.8 mg/dL (0.6-1.0); GFR1 > 60 mL/min; GLUCOSE SERUM 97 mg/dL (74-106); SODIUM SERUM 140 mmol/L (136-145)
[2020-03-22 17:02] LABS: ALBUMIN 3.7 g/dL (3.4-5.0); ALKALINE PHOSPHATASE 43 U/L (46-116); ALT/SGPT 21 U/L (14-59); AST/SGOT 15 U/L (15-37); BILIRUBIN TOTAL 0.4 mg/dL (0.20-1.00); TOTAL PROTEIN, SERUM 7.2 g/dL (6.4-8.2)
[2020-03-22 17:57] VITALS: BP 140/78
[2020-03-22 21:11] VITALS: BP 140/72
[2020-03-23 06:11] VITALS: BP 117/58
[2020-03-23 08:09] LABS: BASOPHIL % 0.2 % (0-2); PLATELET COUNT 223 x10^3mcL (130-400); RED CELL DISTRIBUTION WIDTH 13.5 % (11.5-14.5)
[2020-03-23 08:32] VITALS: BP 122/65
[2020-03-23 08:54] LABS: BILIRUBIN TOTAL 0.4 mg/dL (0.20-1.00); CALCIUM 9.2 mg/dL (8.5-10.1); CARBON DIOXIDE 24.8 mmol/L (21-32); CREATININE SERUM 1.1 mg/dL (0.6-1.0); MAGNESIUM 2.4 mg/dL (1.8-2.4); POTASSIUM SERUM 4.3 mmol/L (3.5-5.1); TOTAL PROTEIN, SERUM 6.6 g/dL (6.4-8.2)
[2020-03-23 09:00] LABS: ALBUMIN 3.3 g/dL (3.4-5.0)
[2020-03-23 12:14] VITALS: BP 101/61
[2020-03-23 16:24] VITALS: BP 121/61
[2020-03-23 20:30] VITALS: BP 110/67
[2020-03-24 05:28] VITALS: BP 117/59
[2020-03-24 06:55] LABS: BASOPHIL % 0.5 % (0-2); PLATELET COUNT 246 x10^3mcL (130-400); RED CELL DISTRIBUTION WIDTH 13.4 % (11.5-14.5)
[2020-03-24 07:12] LABS: ALKALINE PHOSPHATASE 41 U/L (46-116); ALT/SGPT 23 U/L (14-59); AST/SGOT 18 U/L (15-37); BILIRUBIN TOTAL 0.19 mg/dL (0.20-1.00); CALCIUM 8.7 mg/dL (8.5-10.1); CARBON DIOXIDE 27.3 mmol/L (21-32); CHLORIDE SERUM 106 mmol/L (98-107); CREATININE SERUM 0.9 mg/dL (0.6-1.0); GFR1 > 60 mL/min; GLUCOSE SERUM 78 mg/dL (74-106); MAGNESIUM 2.3 mg/dL (1.8-2.4); POTASSIUM SERUM 3.8 mmol/L (3.5-5.1); SODIUM SERUM 140 mmol/L (136-145); TOTAL PROTEIN, SERUM 6.3 g/dL (6.4-8.2)
[2020-03-24 07:19] LABS: ALBUMIN 2.9 g/dL (3.4-5.0)
[2020-03-24 08:15] VITALS: BP 131/65
[2020-03-24 11:25] VITALS: BP 131/65
[2020-03-24 12:06] VITALS: BP 112/66
== END 2020-03-24 15:27 | disposition home or self-care (01) ==
LOC: ED 13:37 → MU 15:37
PROVIDERS: Student in an Organized Health Care Education/Training Program; ADMIT Hospitalist; ATTEND Hospitalist
DX: R53.1 Weakness (principal); R53.83 Other fatigue; I10 Essential (primary) hypertension; E11.9 Type 2 diabetes mellitus without complications; D64.9 Anemia, unspecified; E88.09 Other disorders of plasma-protein metabolism, not elsewhere classified; N28.9 Disorder of kidney and ureter, unspecified
CPT/HCPCS: 82962; 83880; 97116-GP; G0378; J1885; J2270; J2405; J7030; J7512; Q0092; Q0163

== ENCOUNTER 2020-03-26 20:33 | Observation (INO) | payer OTHER, MEDICARE ==
[~2020-03-26] VITALS: Ht 147.3 cm; Wt 93.1 kg
[2020-03-26 20:40] VITALS: Ht 147.3 cm; Wt 93.1 kg
[2020-03-26 21:13] LABS: BASOPHIL % 0.6 % (0-2); PLATELET COUNT 322 x10^3mcL (130-400); RED CELL DISTRIBUTION WIDTH 13.5 % (11.5-14.5)
[2020-03-26 21:27] LABS: CALCIUM 9.3 mg/dL (8.5-10.1); CARBON DIOXIDE 26.7 mmol/L (21-32); CHLORIDE SERUM 105 mmol/L (98-107); CREATININE SERUM 0.9 mg/dL (0.6-1.0); GFR1 > 60 mL/min; GLUCOSE SERUM 133 mg/dL (74-106); POTASSIUM SERUM 3.7 mmol/L (3.5-5.1); SODIUM SERUM 141 mmol/L (136-145)
[2020-03-26 21:32] LABS: ALBUMIN 3.5 g/dL (3.4-5.0); ALKALINE PHOSPHATASE 48 U/L (46-116); ALT/SGPT 33 U/L (14-59); AST/SGOT 19 U/L (15-37); BILIRUBIN TOTAL 0.26 mg/dL (0.20-1.00); CHOLESTEROL 135 mg/dL (<200); MAGNESIUM 2.3 mg/dL (1.8-2.4); TOTAL PROTEIN, SERUM 6.9 g/dL (6.4-8.2)
[2020-03-26 21:34] LABS: HDL CHOLESTEROL 34 mg/dL (40-60)
[2020-03-26 22:24] LABS: microscopic required? YES; urine erythrocyte NEGATIVE (NEGATIVE)
[2020-03-27 00:51] VITALS: BP 137/59
[2020-03-27 04:15] VITALS: BP 135/76
[2020-03-27 07:08] LABS: BASOPHIL % 0.6 % (0-2); PLATELET COUNT 278 x10^3mcL (130-400); RED CELL DISTRIBUTION WIDTH 13.3 % (11.5-14.5)
[2020-03-27 07:55] LABS: ALKALINE PHOSPHATASE 40 U/L (46-116); ALT/SGPT 24 U/L (14-59); AST/SGOT 19 U/L (15-37); BILIRUBIN TOTAL 0.29 mg/dL (0.20-1.00); CALCIUM 8.6 mg/dL (8.5-10.1); CARBON DIOXIDE 25.5 mmol/L (21-32); CHLORIDE SERUM 108 mmol/L (98-107); CREATININE SERUM 0.8 mg/dL (0.6-1.0); GFR1 > 60 mL/min; GLUCOSE SERUM 79 mg/dL (74-106); MAGNESIUM 2.1 mg/dL (1.8-2.4); PHOSPHOROUS 3.2 mg/dL (2.5-4.9); POTASSIUM SERUM 3.9 mmol/L (3.5-5.1); SODIUM SERUM 142 mmol/L (136-145); TOTAL PROTEIN, SERUM 6.2 g/dL (6.4-8.2)
[2020-03-27 08:55] VITALS: BP 117/70
[2020-03-27 12:45] VITALS: BP 119/62
[2020-03-27] MEDS ORDERED: CEFUROXIME AXE500 MG PO (14:38)
[2020-03-27 15:44] VITALS: BP 119/62
== END 2020-03-27 16:25 ==
LOC: ED 20:33 → MU 23:00
PROVIDERS: Emergency Medicine; ADMIT Hospitalist; ATTEND Hospitalist
DX: N39.0 Urinary tract infection, site not specified (principal); G35 Multiple sclerosis; I10 Essential (primary) hypertension; E11.9 Type 2 diabetes mellitus without complications
CPT/HCPCS: G0378; J0696; J1650; J1956; J7030; Q0092; U0003-CS

== ENCOUNTER 2020-09-07 17:30 | Inpatient (IN) | payer OTHER, MEDICARE ==
[~2020-09-07] VITALS: Ht 147.3 cm; Wt 74.8 kg
[~2020-09-07 17:30] MED LIST changes: -ASPIR 8181 MG PO; +ASPIRIN ADULT L81 M5 PO; +CEFUROXIME AXE500 MG PO; +ESCITALOPRAM OX20 MG PO; -ESCITALOPRAM20 M1 PO
[2020-09-07 18:13] LABS: BASOPHIL % 0.7 % (0.2-1.3); PLATELET COUNT 322 x10^3mcL (179-408); RED CELL DISTRIBUTION WIDTH 13.2 % (12.3-17.7)
[2020-09-07 18:18] LABS: CALCIUM 9.9 mg/dL (8.5-10.1); CARBON DIOXIDE 28.7 mmol/L (21-32); CHLORIDE SERUM 104 mmol/L (98-107); CREATININE SERUM 0.7 mg/dL (0.6-1.0); GFR1 > 60 mL/min; GLUCOSE SERUM 91 mg/dL (74-106); POTASSIUM SERUM 3.5 mmol/L (3.5-5.1); SODIUM SERUM 144 mmol/L (136-145)
[2020-09-07 18:23] LABS: ALBUMIN 4.1 g/dL (3.4-5.0); ALKALINE PHOSPHATASE 61 U/L (46-116); ALT/SGPT 24 U/L (14-59); AST/SGOT 21 U/L (15-37); BILIRUBIN TOTAL 0.4 mg/dL (0.20-1.00); TOTAL PROTEIN, SERUM 7.4 g/dL (6.4-8.2)
[2020-09-07 22:00] VITALS: BP 149/75
[2020-09-08 03:12] VITALS: BP 109/54
[2020-09-08 06:53] LABS: ALKALINE PHOSPHATASE 59 U/L (46-116); ALT/SGPT 24 U/L (14-59); AST/SGOT 18 U/L (15-37); BILIRUBIN TOTAL 0.27 mg/dL (0.20-1.00); CALCIUM 8.3 mg/dL (8.5-10.1); CARBON DIOXIDE 27.3 mmol/L (21-32); CHLORIDE SERUM 105 mmol/L (98-107); CREATININE SERUM 0.7 mg/dL (0.6-1.0); GFR1 > 60 mL/min; GLUCOSE SERUM 143 mg/dL (74-106); MAGNESIUM 1.7 mg/dL (1.8-2.4); POTASSIUM SERUM 3.6 mmol/L (3.5-5.1); SODIUM SERUM 143 mmol/L (136-145); TOTAL PROTEIN, SERUM 6.4 g/dL (6.4-8.2)
[2020-09-08 06:55] LABS: ALBUMIN 3.3 g/dL (3.4-5.0)
[2020-09-08 07:19] LABS: BASOPHIL % 0.2 % (0.2-1.3); PLATELET COUNT 260 x10^3mcL (179-408); RED CELL DISTRIBUTION WIDTH 13.4 % (12.3-17.7)
[2020-09-08 08:51] VITALS: BP 103/58
[2020-09-08 12:25] VITALS: BP 125/60
[2020-09-08 16:42] VITALS: BP 117/51
[2020-09-08 21:15] VITALS: BP 118/53
[2020-09-09 04:52] VITALS: BP 108/48
[2020-09-09 07:10] LABS: BASOPHIL % 0.6 % (0.2-1.3); PLATELET COUNT 239 x10^3mcL (179-408); RED CELL DISTRIBUTION WIDTH 13.5 % (12.3-17.7)
[2020-09-09 07:18] VITALS: BP 128/61
[2020-09-09 07:47] LABS: ALKALINE PHOSPHATASE 49 U/L (46-116); ALT/SGPT 21 U/L (14-59); AST/SGOT 13 U/L (15-37); BILIRUBIN TOTAL 0.23 mg/dL (0.20-1.00); CALCIUM 8.7 mg/dL (8.5-10.1); CARBON DIOXIDE 30.8 mmol/L (21-32); CHLORIDE SERUM 109 mmol/L (98-107); CREATININE SERUM 0.9 mg/dL (0.6-1.0); GFR1 > 60 mL/min; GLUCOSE SERUM 83 mg/dL (74-106); POTASSIUM SERUM 4.5 mmol/L (3.5-5.1); SODIUM SERUM 145 mmol/L (136-145)
[2020-09-09 08:09] LABS: ALBUMIN 2.9 g/dL (3.4-5.0); TOTAL PROTEIN, SERUM 5.8 g/dL (6.4-8.2)
[2020-09-09 12:20] VITALS: BP 128/63
[2020-09-09 16:02] VITALS: BP 117/61
[2020-09-09 18:36] VITALS: BP 142/59
[2020-09-10 05:00] VITALS: BP 139/66
[2020-09-10 07:44] LABS: BASOPHIL % 0.9 % (0.2-1.3); PLATELET COUNT 236 x10^3mcL (179-408); RED CELL DISTRIBUTION WIDTH 13.1 % (12.3-17.7)
[2020-09-10 07:53] VITALS: BP 127/67
[2020-09-10 08:01] LABS: ALKALINE PHOSPHATASE 50 U/L (46-116); ALT/SGPT 18 U/L (14-59); AST/SGOT 9 U/L (15-37); BILIRUBIN TOTAL 0.22 mg/dL (0.20-1.00); CARBON DIOXIDE 29.1 mmol/L (21-32); CHLORIDE SERUM 107 mmol/L (98-107); CREATININE SERUM 0.8 mg/dL (0.6-1.0); GFR1 > 60 mL/min; GLUCOSE SERUM 80 mg/dL (74-106); SODIUM SERUM 143 mmol/L (136-145)
[2020-09-10 08:04] LABS: ALBUMIN 2.9 g/dL (3.4-5.0); TOTAL PROTEIN, SERUM 5.8 g/dL (6.4-8.2)
[2020-09-10 11:50] VITALS: BP 115/66
[2020-09-10 15:49] VITALS: BP 144/73
[2020-09-10 16:54] VITALS: Ht 147.3 cm; Wt 74.8 kg
[2020-09-10 21:25] VITALS: BP 123/51
[2020-09-11 05:22] VITALS: BP 138/69
[2020-09-11 06:17] LABS: BASOPHIL % 0.6 % (0.2-1.3); PLATELET COUNT 233 x10^3mcL (179-408); RED CELL DISTRIBUTION WIDTH 13.3 % (12.3-17.7)
[2020-09-11 06:32] LABS: ALKALINE PHOSPHATASE 51 U/L (46-116); ALT/SGPT 17 U/L (14-59); AST/SGOT 10 U/L (15-37); BILIRUBIN TOTAL 0.32 mg/dL (0.20-1.00); CALCIUM 9.4 mg/dL (8.5-10.1); CARBON DIOXIDE 30.6 mmol/L (21-32); CHLORIDE SERUM 108 mmol/L (98-107); CREATININE SERUM 0.9 mg/dL (0.6-1.0); GFR1 > 60 mL/min; GLUCOSE SERUM 81 mg/dL (74-106); POTASSIUM SERUM 4.4 mmol/L (3.5-5.1); SODIUM SERUM 144 mmol/L (136-145)
[2020-09-11 08:10] VITALS: BP 116/62
[2020-09-11 11:55] VITALS: BP 112/61
[2020-09-11] MEDS ORDERED: DIT5 PO (12:58)
[2020-09-11 16:42] VITALS: BP 114/56
[2020-09-11 17:46] LABS: UA SPECIFIC GRAVITY 1.015 (1.005-1.035); microscopic required? YES; urine erythrocyte 2+ (NEGATIVE)
[2020-09-11 20:56] VITALS: BP 122/59
[2020-09-12 06:24] VITALS: BP 139/69
[2020-09-12 06:55] LABS: BASOPHIL % 0.9 % (0.2-1.3); PLATELET COUNT 253 x10^3mcL (179-408); RED CELL DISTRIBUTION WIDTH 13.3 % (12.3-17.7)
[2020-09-12 07:16] LABS: ALKALINE PHOSPHATASE 49 U/L (46-116); ALT/SGPT 16 U/L (14-59); AST/SGOT 9 U/L (15-37); BILIRUBIN TOTAL 0.3 mg/dL (0.20-1.00); CALCIUM 9.1 mg/dL (8.5-10.1); CARBON DIOXIDE 27.7 mmol/L (21-32); CHLORIDE SERUM 106 mmol/L (98-107); CREATININE SERUM 0.7 mg/dL (0.6-1.0); GFR1 > 60 mL/min; GLUCOSE SERUM 76 mg/dL (74-106); MAGNESIUM 2.1 mg/dL (1.8-2.4); POTASSIUM SERUM 4.2 mmol/L (3.5-5.1); SODIUM SERUM 141 mmol/L (136-145); TOTAL PROTEIN, SERUM 6.5 g/dL (6.4-8.2)
[2020-09-12 07:17] LABS: ALBUMIN 3.2 g/dL (3.4-5.0)
[2020-09-12 10:26] VITALS: BP 108/58
[2020-09-12 11:25] VITALS: BP 107/51
[2020-09-12 14:09] VITALS: BP 107/51
[2020-09-12 15:40] VITALS: BP 112/54
== END 2020-09-12 16:04 | DRG 383 ==
LOC: ED 17:30 → MU 19:44
PROVIDERS: Emergency Medicine; ADMIT Hospitalist; ATTEND Hospitalist
DX: L03.116 Cellulitis of left lower limb (principal); G35 Multiple sclerosis; E11.9 Type 2 diabetes mellitus without complications; I10 Essential (primary) hypertension; E86.0 Dehydration; F41.9 Anxiety disorder, unspecified; Z20.822 Contact with and (suspected) exposure to COVID-19; E78.5 Hyperlipidemia, unspecified; Z79.84 Long term (current) use of oral hypoglycemic drugs; Z88.0 Allergy status to penicillin; Z79.899 Other long term (current) drug therapy
CPT/HCPCS: 82962; 97110-GP; 97116-GP; 97530-GP; G0378; J1200; J1815; J2930; J3490; J7030